=== PATIENT | male | born 1955 | race Caucasian/White ===

== ENCOUNTER → 2023-10-08 07:29 | Outpatient (REF) | payer BC, SELFPAY | LOC: HWRAD 07:29 | PROVIDERS: ATTENDING PHYSICIAN Family Medicine | DX: Z87.891 Personal history of nicotine dependence (principal) | CPT/HCPCS: 71271 ==

== ENCOUNTER → 2023-10-21 08:50 | Day surgery (SDC) | payer BC, SELFPAY ==
[2023-10-21 09:24] VITALS: BMI 30.2
== END ==
LOC: CATH 08:50
PROVIDERS: ATTENDING PHYSICIAN Internal Medicine Cardiovascular Disease; FAMILY PHYSICIAN Family Medicine; OTHER PHYSICIAN Internal Medicine Cardiovascular Disease
DX: I48.91 Unspecified atrial fibrillation (principal); I48.92 Unspecified atrial flutter; I34.0 Nonrheumatic mitral (valve) insufficiency; I34.81 Nonrheumatic mitral (valve) annulus calcification; I31.39 Other pericardial effusion (noninflammatory); Z95.810 Presence of automatic (implantable) cardiac defibrillator; I10 Essential (primary) hypertension; I47.20 Ventricular tachycardia, unspecified; I25.10 Atherosclerotic heart disease of native coronary artery without angina pectoris; R55 Syncope and collapse; E78.2 Mixed hyperlipidemia; E11.9 Type 2 diabetes mellitus without complications
CPT/HCPCS: 93312; 93320; 93325; 92960; 93005

== ENCOUNTER → 2023-11-19 14:43 | Outpatient (REF) | payer BC, SELFPAY | LOC: HWRAD 14:43 | PROVIDERS: ATTENDING PHYSICIAN Surgery; FAMILY PHYSICIAN Family Medicine | DX: N20.0 Calculus of kidney (principal) | CPT/HCPCS: 74018 ==

== ENCOUNTER → 2023-12-17 11:22 | Outpatient (REF) | payer BC, SELFPAY | LOC: HWRAD 11:22 | PROVIDERS: ATTENDING PHYSICIAN Surgery; FAMILY PHYSICIAN Family Medicine; REFERRING PHYSICIAN Internal Medicine Cardiovascular Disease | DX: R31.9 Hematuria, unspecified (principal) | CPT/HCPCS: 74176 ==

== ENCOUNTER 2024-01-25 06:28 | Day surgery (SDC) | payer BC, SELFPAY ==
[2024-01-21 08:47] LABS: Hematocrit 49.5 % (39.0-52.0); Mean Corp Hgb Conc. 34.3 g/dL (33.0-37.0); Mean Corpuscular Hgb 30.4 pg (27.0-31.0); Mean Corpuscular Volume 88.6 fL (80.0-94.0); Mean Platelet Volume 11.6 fL (7.4-10.4); Platelet Count 169 10^3/uL (130-400); Red Blood Cell Count 5.59 10^6/uL (4.70-6.10); Red Cell Dist. Width 15.9 % (11.5-14.5); White Blood Cell Count 8.2 10^3/uL (4.8-10.8)
[2024-01-21 08:52] LABS: INR 1.11; PT 14.4 Sec (11.4-14.6)
[2024-01-21 08:53] LABS: APTT 30.1 Sec (23.4-35.0)
[2024-01-21 10:27] LABS: Blood Urea Nitrogen 28 mg/dl (9-20); Calcium 9.9 mg/dl (8.4-10.2); Carbon Dioxide 19 mmol/L (22-30); Chloride 109 mmol/L (98-107); Glucose 104 mg/dl (70-99); Potassium 4.6 mmol/L (3.5-5.1); Sodium 144 mmol/L (135-145); eGFR > 60.00
[2024-01-21 10:39] VITALS: BMI 29.7
[2024-01-25] VITALS (10 sets, daily range): BP systolic 95–145; BP diastolic 62–88; BMI 29.7
[2024-01-25 12:37] LABS: Glucose - Point of Care 102 mg/dl (70-99)
[2024-01-25] MEDS: NORMOSOL-R/PLASMALYTE-A 1000 IV (12:37)
--- NOTE | 2024-01-25 14:47 | W.IMMPOSTOP ---
Surgical Immed Post Op Note
-
Primary Surgeon: Althea
Pre-op Diagnosis: Dilation of proximal left ureter, hematuria
Post-op Diagnosis: Inflammatory lesions of proximal left ureter w/o discrete tumors, hematuria
Procedure Performed: cysto, left URS/biopsy x2/laser ablation/ureteral stent placement
Anesthesia Type: LMA
Specimen / Cultures: Left ureteral biopsies x2, left ureteral washings for cytology/None
Estimated Blood Loss: 1 cc
Drains: 6Fr x 24 cm JJ left ureteral stent
Complications: None
Operative Findings: see op note
[2024-01-25] MEDS: Pyridium 200 MG PO (15:13)
[2024-01-25] MEDS: DETROL LA 4 MG PO (15:13)
--- NOTE | 2024-01-25 15:24 | SUR.PHASEI ---
relieved by Ana Flanagan RN at 1524.. patient awake and alert, able to take po meds. without c/o
== END 2024-01-25 16:30 | disposition home or self-care (01) ==
LOC: SDS 06:28
PROVIDERS: ATTENDING PHYSICIAN Surgery; FAMILY PHYSICIAN Family Medicine
DX: N28.89 Other specified disorders of kidney and ureter (principal); R31.9 Hematuria, unspecified
CPT/HCPCS: 52354; 52332; 88305; 74018; 76000; 80048; 82962; 85027; 85610; 85730; 88112; C1758; C1769; C1894; C2617

== ENCOUNTER → 2024-05-20 07:29 | Outpatient (REF) | payer MEDICARE, OTHER, SELFPAY | LOC: RAD 07:29 | PROVIDERS: ATTENDING PHYSICIAN Surgery; FAMILY PHYSICIAN Family Medicine | DX: N28.89 Other specified disorders of kidney and ureter (principal) | CPT/HCPCS: 74178; Q9967 ==

== ENCOUNTER 2024-06-28 20:42 | Emergency (ER) | payer MEDICARE, OTHER, SELFPAY ==
[2024-06-28 20:58] VITALS: BP 176/102
[2024-06-28 21:28] LABS: % Basophils 0.5 % (0-2); % Immature Granulocytes 0.6 % (0-0.5); % Lymphocytes 19.2 % (20.5-51.1); % Monocytes 6.4 % (1.7-9.3); % Neutrophils 71.3 % (42.2-75.2); Absolute Basophils 0.1 10^3/uL (0-0.2); Absolute Eosinophils 0.2 10^3/uL (0-0.7); Absolute Immature Granulocytes 0.1 10^3/uL (0-0.05); Absolute Monocytes 0.7 10^3/uL (0.1-0.6); Absolute Neutrophils 7.3 10^3/uL (1.4-6.5); Hematocrit 49.4 % (39.0-52.0); Hemoglobin 16.5 g/dL (13.0-18.0); Mean Corp Hgb Conc. 33.4 g/dL (33.0-37.0); Mean Corpuscular Volume 92.9 fL (80.0-94.0); Mean Platelet Volume 10.1 fL (7.4-10.4); Nucleated Red Blood Cells % 0 % (-); Platelet Count 176 10^3/uL (130-400); Red Blood Cell Count 5.32 10^6/uL (4.70-6.10); Red Cell Dist. Width 15.1 % (11.5-14.5); White Blood Cell Count 10.2 10^3/uL (4.8-10.8)
[2024-06-28 21:47] LABS: ALT (SGPT) 65 U/L (0-50); AST (SGOT) 45 U/L (17-59); Alkaline Phosphatase 103 U/L (38-126); Blood Urea Nitrogen 27 mg/dl (9-20); Calcium 9.5 mg/dl (8.4-10.2); Carbon Dioxide 21 mmol/L (22-30); Chloride 106 mmol/L (98-107); Glucose 100 mg/dl (70-99); Lipase 63 U/L (23-300); Potassium 4.3 mmol/L (3.5-5.1); Sodium 138 mmol/L (135-145); Total Bilirubin 0.9 mg/dl (0.2-1.3); eGFR > 60.00
[2024-06-29 00:21] VITALS: BP 151/90
[2024-06-29 00:23] VITALS: BP 151/90
--- NOTE | 2024-06-29 00:27 | ED.GENMED ---
History of Present Illness
General
Chief Complaint: Abdominal Symptoms
Source: patient
Time Seen by Provider: 06/29/24 00:16
Nursing documentation reviewed up to this point in time: agreed with
History of Present Illness
History of Present Illness:
Pleasant 69-year-old male presents with abdominal patient called his family doctor at [facility] who advised him to go to urgent care when he told her of his distended abdomen. Urgent care advised him to come to the emergency department for
evaluation. Patient was recently diagnosed with renal cancer. He had a ureteral stent by Dr. Poon placed on June 16. Patient states that his abdomen has been getting more more distended since the procedure. 2 days ago he developed what
appears to be an umbilical hernia and increased pain in his abdomen throughout. Patient is followed at [facility] and it was determined that he would begin receiving chemotherapeutic treatments and radiation at a later date. Patient has been
dealing with constipation. He started taking psyllium a week ago and states that he has been moving his bowels. Since the ureteral stent has been placed, he has had frequent trips to the bathroom for small amount to urinate. He states that that
has not changed
Vital signs are stable. Patient not hypoxic
Nursing note reviewed. I agree with nursing documentation up to this point in time.
Home Meds and allergies reviewed.
NUMBER AND COMPLEXITY OF PROBLEMS ADDRESSED AT THE ENCOUNTER
� Chronic conditions affecting care:
� Acute Exacerbation and/or Progression of Chronic Illness:
� Differential Diagnosis includes: Umbilical hernia, ascites, progression of renal cancer
AMOUNT AND/OR COMPLEXITY OF DATA TO BE REVIEWED AND ANALYZED
I performed an independent evaluation of the following and my interpretation is:
EKG:
Pulse Ox: Not Hypoxic
Sales Order Administrator: Sinus Rhythm
CT:
X-rays:
Ultrasound:
Laboratory Studies:
Other:
Review of other/old records:
Clinical information was obtained by an independent historian:
Prescriptions/Medications Considered but not given:
Further testing considered but not performed:
RISK OF COMPLICATIONS AND/OR MORBIDITY OR MORTALITY OF PATIENT MANAGEMENT
Social determinants of health affecting care: Good Social Support
Discussion with other providers:
Escalation of care including admission/observation vs risk of discharge considered: After being observed in the emergency department, patient is
CRITICAL CARE NOTE:
Total Time (exclusive of procedures):
Update:
Past History
Past History
ED Past Medical History: Other (lymphoma)
ED Past Surgical History: Appendectomy and Other (hernia)
Social History
Personal:
Living: with family
Review of Systems
Review of Systems
Allergies reviewed?: Yes
All Other Systems: ROS reviewed and negative except as documented in HPI and ROS
Constitutional: Reports no symptoms
EENT: Reports no symptoms
Respiratory: Reports no symptoms
Cardiac: Reports no symptoms
ABD/GI: Reports abdominal pain and constipated
: Reports no symptoms
Musculoskeletal: Reports no symptoms
Skin: Reports no symptoms
Neurological: Reports no symptoms
Endocrine: Reports no symptoms
Hematologic/Lymphatic: Reports no symptoms
Psychiatric: Reports no symptoms
Phy Exam
General Physical Exam
General Presentation: well appearing and no apparent distress
General Skin: warm and dry
General Habitus: normal
General Mental: alert
General Hydration: appears well hydrated
ENT Exam
ENT Exam: EOMI, pharynx normal, neck supple and normocephalic
Eye Exam
Eye Exam: PERRL, cornea clear and conjunctiva normal
Cardiovascular Exam
Cardiovascular Exam: regular rate/rhythm, no edema, no murmur and normal peripheral pulses
Pulmonary Exam
Pulmonary Exam: lungs clear, no respiratory distress, no rales, no crackles, no rhonchi, no stridor, no wheezing and no cough
Gastrointestinal Exam
Gastrointestinal Exam: normal bowel sounds, distended, no inguinal hernia and tender
Palpation: generalized: Minimal tenderness
Neurological Exam
Neurological Exam: alert, oriented x3, no motor deficits and speech normal
Musculoskeletal Exam
Musculoskeletal Exam: full ROM and no edema
Skin Exam
Skin Exam: normal color, warm/dry, no rash and no petechia
Psychiatric Exam
Psychiatric Exam: normal mood/affect
Course
Orders/Labs/Results
Orders:
Orders
06/28/24 21:15
Complete Blood Count/With Diff Urgent
Comprehensive Metabolic Panel Urgent
Lipase Urgent
06/28/24 23:39
CT Abd/Pel (IV only)-DH only Urgent
Comment:
Reason For Exam: L ureteral stent /, distended ab, hematuria
06/29/24 00:29
Electrocardiogram (*1) Urgent
Reason for Study: Abdominal Pain
EKG- Treatment ONCE
06/29/24 00:59
Lactic Acid Q4H
Comment: CANCEL 2nd LACTIC ACID IF 1st LACTIC ACID IS LESS THAN 2
06/29/24 03:23
Urinalysis Urgent
Urine Microscopic Urgent
06/29/24 03:25
Cephalexin Monohydrate [Keflex] 500 mg PO NOW STA
06/29/24 03:34
Cephalexin Monohydrate [Keflex] 500 mg .ROUTE .STK-MED ONE
06/29/24 03:39
Cephalexin Monohydrate [Keflex] 500 mg PO NOW STA
Abnormal Lab Results
06/28/24 06/29/24
21:15 03:23
RDW 15.1 H %
(11.5-14.5)
Abs Immat Gran (auto) 0.1 H 10^3/uL
(0-0.05)
Absolute Neuts (auto) 7.3 H 10^3/uL
(1.4-6.5)
Absolute Monos (auto) 0.7 H 10^3/uL
(0.1-0.6)
Immature Gran % 0.6 H %
(0-0.5)
Lymphocytes % 19.2 L %
(20.5-51.1)
Carbon Dioxide 21 L mmol/L
(22-30)
BUN 27 H mg/dl
(9-20)
Glucose 100 H mg/dl
(70-99)
ALT 65 H U/L
(0-50)
Urine Occult Blood 4+ A
(Negative)
Urine Nitrite Positive A
(Negative)
Ur Leukocyte Esterase 2+ A
(Negative)
Urine RBC >100 A /HPF
(0-2)
Urine WBC 6-10 A /HPF
(0-5)
Urine Bacteria Moderate A
(Negative)
Urine Albumin 4+ A
(Neg - Trace)
06/28/24 21:15
06/28/24 21:15
Vital Signs
Initial and Last Documented VS:
Initial Vital Signs
Temp Pulse Resp BP Pulse Ox
97.3 F 100 18 176/102 98
06/28/24 20:58 06/28/24 20:58 06/28/24 20:58 06/28/24 20:58 06/28/24 20:58
Last Documented Vital Signs
Temp Pulse Resp BP Pulse Ox
97.3 F 91 18 155/86 96
06/28/24 20:58 06/29/24 00:23 06/28/24 20:58 06/29/24 03:00 06/29/24 03:00
*Critical Care Note
Total Time (30-74mins, 75-104mins- exclusive of procedures): Not Applicable
Update Note
Update Note:
CT A/P W/IV CONTRAST
IMPRESSION:
Comparison with 05/20/2024.
Interval placement of a left double-J ureteral stent. Mild decrease in dilation of the left ureter. Mild stranding along the ureter margins. This could reflect postprocedural change and/or infection. Correlate with urine studies. No obstructing
stone.
No evidence of right hydroureteronephrosis or obstructing stone.
Small bowel hernia. Stranding along the margins of the umbilical hernia in the superficial soft tissues of the intra-abdominal wall. Correlate with signs of cellulitis. No evidence of abscess formation.
Right inguinal surgical clips. Correlate with procedural history.
No appendicitis or colitis.
No evidence of small bowel obstruction.
No free fluid or free air.
Unremarkable appearance of the pelvic viscera.
No AAA.
Case finalized at 1242am ET.
Patient feeling agitated. He wishes to be discharged. He just gave us a urine sample. It appears brown. Will treat for UTI. Patient does not want to wait for results.
ED Attending Note
-
Portions of this chart may have been created with voice recognition software.� Occasional wrong word or��sound alike� substitutions may have occurred due to the inherent limitations of voice recognition software.
Discharge Plan
Departure
Patient Disposition: Home (Routine Discharge)
Date of Disposition: 06/29/24
Time of Disposition: 03:40
Patient with high blood pressure during this ER visit?: Yes
Condition: Good
Discharge Problem:
Abdominal pain, Hernia, umbilical, Acute UTI
Instructions: Urinary tract infections in adults, Abdominal Pain
Prescriptions:
New
cephalexin 500 mg capsule
500 mg PO BID 10 Days Qty: 20 0RF
No Action
metoprolol succinate 25 MG tablet extended release 24 hr
25 mg PO DAILY
rosuvastatin 20 MG tablet
40 mg PO DAILY
losartan 50 mg Tablet
50 mg PO BID
tamsulosin [Flomax] 0.4 mg Capsule
0.4 mg PO BID
coenzyme Q10 [Co Q-10] 100 mg Capsule
100 mg PO DAILY
Eliquis 5 mg Tablet
5 mg PO BID
Referrals:
Dariana Roberson, [Family Provider] -
Activity Restrictions/Additional Instructions:
It was a pleasure meeting you and taking part in your care. We hope for your continued healing and wellness.
Please read discharge instructions in their entirety. However, they are for general education and may not describe your exact diagnosis at discharge. Information on your ER visit and medical conditions were discussed with you along with appropriate
follow up information...
If indicated, please take your medications as instructed and indicated on discharge paperwork.
Please schedule a follow up appointment as directed. Call to schedule an appointment
Please return to the emergency department with ANY change in, persisting, or worsening of symptoms. If any of your symptoms do not improve, or persist, or become more severe within 6-12 hours, please return to the emergency department for further
care.
Please return to the emergency department if you develop a headache, neck pain/stiffness, fever greater than 100.4F, chest pain, shortness of breath, persistent nausea, vomiting, slurred speech, difficulty walking, numbness/tingling, weakness, signs
of infection or any other symptoms that are worrisome to you.
If you have any questions or concerns please do not hesitate to call the Hospital at or E-mail me directly at [email or web address]
Interventions
Interventions:
*Risk Screen - Suicide Last Done: 06/28/24 20:58
*General Assessment Last Done: 06/28/24 20:58
*Neglect/Abuse Screening Last Done: 06/28/24 20:58
ED- Fall Risk Assessment Last Done: 06/29/24 02:44
*ED COVID-19 Vaccine History Last Done: 06/29/24 02:44
*Nursing Disposition Last Done: 06/29/24 03:48
[facility]-Jkvrlpbc[facility] Assessment Last Done: 06/29/24 00:22
Discharge Date and Time
Discharge Date/Time: 06/29/24 03:52
Print Language: EQUATORIAL GUINEAN
[2024-06-29 01:00] VITALS: BP 142/92
[2024-06-29 02:26] LABS: Lactic Acid 0.9 mmol/L (0.7-2.0)
[2024-06-29 02:31] VITALS: BP 144/85
--- NOTE | 2024-06-29 02:39 | DOWNTIME ---
There was a [employer] [employer] Manager Downtime on 06/29/2024 from 0100 to 06/29/2023 at 0235 . Downtime documentation of patient's care, including medication administrations, has been reconciled in the electronic record per guidelines. Refer to the
patient's paper chart under the miscellaneous tab to see printed paper medication records and downtime forms.
[2024-06-29 02:46] VITALS: BMI 30.9
[2024-06-29 03:00] VITALS: BP 155/86
[2024-06-29] MEDS: KEFLEX 500 MG PO (03:39)
[2024-06-29 03:52] LABS: Urine Albumin 4+ (Neg - Trace); Urine Bilirubin Negative (Negative); Urine Character Cloudy (Clear); Urine Color Brown; Urine Glucose Negative (Negative); Urine Ketone Negative (Negative); Urine Leukocyte 2+ (Negative); Urine Nitrite Positive (Negative); Urine Occult Blood 4+ (Negative); Urine Specific Gravity 1.015 (<1.030); Urine Urobilinogen Negative (Neg - 1+)
[2024-06-29 04:57] LABS: Urine Bacteria Moderate (Negative); Urine Red Blood Cell >100 /HPF (0-2)
== END 2024-06-29 03:52 | disposition home or self-care (01) ==
LOC: EMR 20:42
PROVIDERS: Student in an Organized Health Care Education/Training Program; EMERGENCY PHYSICIAN Student in an Organized Health Care Education/Training Program; FAMILY PHYSICIAN Family Medicine
DX: K42.9 Umbilical hernia without obstruction or gangrene (principal); N39.0 Urinary tract infection, site not specified; R10.9 Unspecified abdominal pain; R14.0 Abdominal distension (gaseous); K59.00 Constipation, unspecified; C64.9 Malignant neoplasm of unspecified kidney, except renal pelvis; G62.9 Polyneuropathy, unspecified; I10 Essential (primary) hypertension; I25.10 Atherosclerotic heart disease of native coronary artery without angina pectoris; I48.92 Unspecified atrial flutter; J44.9 Chronic obstructive pulmonary disease, unspecified; E78.5 Hyperlipidemia, unspecified; I44.1 Atrioventricular block, second degree; K57.90 Diverticulosis of intestine, part unspecified, without perforation or abscess without bleeding; M19.90 Unspecified osteoarthritis, unspecified site; Z98.890 Other specified postprocedural states; Z79.01 Long term (current) use of anticoagulants; Z95.810 Presence of automatic (implantable) cardiac defibrillator; Z85.72 Personal history of non-Hodgkin lymphomas; Z87.442 Personal history of urinary calculi
CPT/HCPCS: 99285; 51798; 74177; 80053; 81003; 81015; 83605; 83690; 85025; 93005; Q9967

== ENCOUNTER → 2024-07-29 14:46 | Outpatient (REF) | payer MEDICARE, OTHER, SELFPAY | LOC: HWRCS 14:46 | PROVIDERS: ATTENDING PHYSICIAN Internal Medicine Cardiovascular Disease; FAMILY PHYSICIAN Family Medicine | DX: I48.92 Unspecified atrial flutter (principal) | CPT/HCPCS: 93306 ==

== ENCOUNTER → 2024-08-01 12:17 | Outpatient (REF) | payer MEDICARE, OTHER, SELFPAY ==
[2024-08-01 12:55] LABS: % Basophils 0.3 % (0-2); % Eosinophils 1.5 % (0-6); % Immature Granulocytes 0.2 % (0-0.5); % Monocytes 7.6 % (1.7-9.3); % Neutrophils 77.4 % (42.2-75.2); Absolute Eosinophils 0.2 10^3/uL (0-0.7); Absolute Lymphocytes 1.3 10^3/uL (1.2-3.4); Absolute Monocytes 0.8 10^3/uL (0.1-0.6); Hematocrit 47.2 % (39.0-52.0); Hemoglobin 15.9 g/dL (13.0-18.0); Mean Corp Hgb Conc. 33.7 g/dL (33.0-37.0); Mean Corpuscular Hgb 30.4 pg (27.0-31.0); Mean Corpuscular Volume 90.2 fL (80.0-94.0); Mean Platelet Volume 9.4 fL (7.4-10.4); Platelet Count 166 10^3/uL (130-400); Red Blood Cell Count 5.23 10^6/uL (4.70-6.10); Red Cell Dist. Width 14.3 % (11.5-14.5); White Blood Cell Count 10.3 10^3/uL (4.8-10.8)
[2024-08-01 14:04] LABS: ALT (SGPT) 29 U/L (0-50); AST (SGOT) 25 U/L (17-59); Albumin 4.2 g/dl (3.5-5.0); Alkaline Phosphatase 98 U/L (38-126); Blood Urea Nitrogen 28 mg/dl (9-20); Calcium 9.7 mg/dl (8.4-10.2); Carbon Dioxide 24 mmol/L (22-30); Chloride 110 mmol/L (98-107); Glucose 104 mg/dl (70-99); Potassium 4.5 mmol/L (3.5-5.1); Sodium 142 mmol/L (135-145); Total Bilirubin 0.7 mg/dl (0.2-1.3); Total Protein 6.3 g/dl (6.3-8.2); eGFR 59.84
== END ==
LOC: OIDL 12:17
PROVIDERS: ATTENDING PHYSICIAN Internal Medicine Hematology & Oncology
DX: C82.99 Follicular lymphoma, unspecified, extranodal and solid organ sites (principal); M81.8 Other osteoporosis without current pathological fracture; E83.119 Hemochromatosis, unspecified; C66.9 Malignant neoplasm of unspecified ureter
CPT/HCPCS: 80053; 85025

== ENCOUNTER → 2024-08-02 12:18 | Outpatient (REF) | payer MEDICARE, OTHER, SELFPAY ==
[2024-08-02 12:35] VITALS: BP 131/91; BP_SYST 80
[2024-08-02] MEDS: ANCEF 10 IV (13:10)
[2024-08-02 14:15] VITALS: BP 126/87; BP_SYST 74
[2024-08-02 14:20] VITALS: BP 139/82; BP_SYST 75
[2024-08-02 14:25] VITALS: BP 123/81; BP_SYST 68
== END ==
LOC: RADI 12:18
PROVIDERS: ATTENDING PHYSICIAN Internal Medicine Hematology & Oncology
DX: C66.2 Malignant neoplasm of left ureter (principal)
CPT/HCPCS: 36561; 76937; 77001; 99152; 99153; C1788

== ENCOUNTER → 2024-08-10 11:52 | Outpatient (REF) | payer MEDICARE, OTHER, SELFPAY | LOC: RAD 11:52 | PROVIDERS: ATTENDING PHYSICIAN Internal Medicine Hematology & Oncology; FAMILY PHYSICIAN Family Medicine | DX: C66.9 Malignant neoplasm of unspecified ureter (principal) | CPT/HCPCS: 74177; Q9967 ==

== ENCOUNTER → 2024-10-04 06:30 | Outpatient (REF) | payer MEDICARE, OTHER, SELFPAY ==
[2024-10-04 07:27] LABS: % Basophils 0.9 % (0-2); % Eosinophils 2.2 % (0-6); % Immature Granulocytes 0.9 % (0-0.5); % Lymphocytes 21.1 % (20.5-51.1); % Neutrophils 71.9 % (42.2-75.2); Absolute Eosinophils 0.1 10^3/uL (0-0.7); Absolute Monocytes 0.1 10^3/uL (0.1-0.6); Absolute Neutrophils 3.4 10^3/uL (1.4-6.5); Hematocrit 36.7 % (39.0-52.0); Hemoglobin 12.3 g/dL (13.0-18.0); Mean Corp Hgb Conc. 33.5 g/dL (33.0-37.0); Mean Corpuscular Hgb 31.9 pg (27.0-31.0); Mean Corpuscular Volume 95.3 fL (80.0-94.0); Mean Platelet Volume 10.2 fL (7.4-10.4); Nucleated Red Blood Cells % 0 % (-); Platelet Count 177 10^3/uL (130-400); Red Blood Cell Count 3.85 10^6/uL (4.70-6.10); White Blood Cell Count 4.7 10^3/uL (4.8-10.8)
[2024-10-04 08:03] LABS: ALT (SGPT) 29 U/L (0-50); AST (SGOT) 23 U/L (17-59); Albumin 4.3 g/dl (3.5-5.0); Alkaline Phosphatase 100 U/L (38-126); Blood Urea Nitrogen 26 mg/dl (9-20); Calcium 9.4 mg/dl (8.4-10.2); Carbon Dioxide 22 mmol/L (22-30); Chloride 111 mmol/L (98-107); Glucose 114 mg/dl (70-99); Magnesium 1.8 mg/dl (1.6-2.3); Potassium 4.8 mmol/L (3.5-5.1); Sodium 142 mmol/L (135-145); Total Bilirubin 0.5 mg/dl (0.2-1.3); Total Protein 6.1 g/dl (6.3-8.2); eGFR > 60.00
== END ==
LOC: REG 06:30
PROVIDERS: ATTENDING PHYSICIAN Internal Medicine Hematology & Oncology; FAMILY PHYSICIAN Family Medicine
DX: C82.99 Follicular lymphoma, unspecified, extranodal and solid organ sites (principal); C66.9 Malignant neoplasm of unspecified ureter; R10.9 Unspecified abdominal pain
CPT/HCPCS: 36415; 80053; 83735; 85025

== ENCOUNTER → 2024-10-28 07:33 | Outpatient (REF) | payer MEDICARE, OTHER, SELFPAY | LOC: RAD 07:33 | PROVIDERS: ATTENDING PHYSICIAN Internal Medicine Hematology & Oncology; FAMILY PHYSICIAN Family Medicine | DX: C82.99 Follicular lymphoma, unspecified, extranodal and solid organ sites (principal); M81.8 Other osteoporosis without current pathological fracture; E83.119 Hemochromatosis, unspecified; C66.9 Malignant neoplasm of unspecified ureter; R10.9 Unspecified abdominal pain | CPT/HCPCS: 71260; 74177; Q9967 ==

== ENCOUNTER → 2025-02-23 13:54 | Outpatient (REF) | payer MEDICARE, OTHER, SELFPAY | LOC: HWRAD 13:54 | PROVIDERS: ATTENDING PHYSICIAN Surgery; FAMILY PHYSICIAN Family Medicine; OTHER PHYSICIAN Internal Medicine Medical Oncology; REFERRING PHYSICIAN Surgery | DX: R10.32 Left lower quadrant pain (principal); M79.605 Pain in left leg | CPT/HCPCS: 76870; 76882; 93976 ==